=== PATIENT | male | born 1945 | race African-American/Black ===

== ENCOUNTER 2017-08-04 06:46 | Inpatient (IN) | payer MEDICARE ==
[2017-07-23 09:09] LABS: HEMATOCRIT 38.9 % (42.0-52.0); HEMOGLOBIN 13.3 gm/dL (14.0-18.0); MCHC 34.1 g/dL (28.0-37.0); MCV 85.1 fL (80.0-100.0); MPV 7.9 fl. (7.2-11.1); RBC 4.57 mil/uL (4.50-6.00); RDW-CV 14.4 % (10.5-14.5); WBC 5.1 thou/uL (4.0-11.0)
[2017-07-23 09:14] LABS: PROTIME 9.5 Seconds (9.20-11.50)
[2017-07-23 09:18] LABS: ALBUMIN 4.1 g/dL (3.4-5.0); CALCIUM 9.5 mg/dL (8.5-10.1); CREATININE 0.9 mg/dL (0.6-1.3); POTASSIUM 4.1 mmol/L (3.5-5.1); TOTAL BILIRUBIN 0.4 mg/dL (<0.1-1.0); TOTAL PROTEIN 7.8 g/dL (6.4-8.2)
[2017-07-23 10:00] LABS: URINE BLOOD NEGATIVE (Negative); URINE CLARITY CLEAR; URINE COLOR YELLOW; URINE GLUCOSE-RANDOM NEGATIVE (Negative); URINE KETONES NEGATIVE (Negative); URINE LEUKOCYTES-REFLEX NEGATIVE (Negative); URINE NITRITE-REFLEX NEGATIVE (Negative); URINE PROTEIN NEGATIVE (Negative); URINE SPECIFIC GRAVITY 1.015 (1.005-1.030); URINE UROBILINOGEN 0.2 E.U./dl (0.2-1.0)
[2017-07-23 10:01] LABS: URINE BILIRUBIN 2+ (Negative)
[2017-07-23 10:02] LABS: ICTOTEST (BILI CONFIRMATORY) Positive (Negative)
--- NOTE | 2017-07-23 16:39 | EKG ---
[place] [address] ELECTROCARDIOGRAM REPORT Name: DAMIAN THOMAS Room: PRE IN .R.#: [id number] Admission: Attend Phys: Abhishek Elliott Discharge: Date of : 47 Report #: [id number] THIS REPORT FOR: //name// [facility] Test Date: 2017-07-23 Test Time: 09:18:35 Pat Name: DAMIAN THOMAS Department: Room: Gender: M [employer]: : 1945 Requested By: Damian Hoyt Order Number: [id number] Reading MD: Richard Myers Measurements Intervals [place] Rate: 78 P: 54 NH: 127 QRS: 60 QRSD: 92 T: 44 QT: 365 QTc: 416 Interpretive Statements Sinus rhythm No previous ECG available for comparison Electronically Signed On 07-23-2017 16:39:01 CDT by Richard Myers [email or web address] <ELECTRONICALLY SIGNED> By: Richard Myers MD, [facility] 07/23/17 1639 0918 09 Richard Myers MD, FACC /EPI
[~2017-08-04] VITALS: Ht 182.9 cm; Wt 69.4 kg
[~2017-08-04 06:46] MED LIST: ETODOLAC 400 M400 M1 PO; NORCO 5-325 TA1 EACH PO
[2017-08-04 08:30] VITALS: BP 130/75
[2017-08-04 12:00] VITALS: BP 141/83
[2017-08-04 15:30] VITALS: BP 136/77
[2017-08-05] VITALS (7 sets, daily range): BP systolic 106–129; BP diastolic 62–75
[2017-08-05 05:18] LABS: HEMATOCRIT 27.2 % (42.0-52.0); HEMOGLOBIN 9.4 gm/dL (14.0-18.0)
[2017-08-06 04:17] VITALS: BP 117/72
[2017-08-06 04:17] LABS: HEMATOCRIT 26.5 % (42.0-52.0); HEMOGLOBIN 8.9 gm/dL (14.0-18.0)
[2017-08-06 08:30] VITALS: BP 108/72
[2017-08-06 09:00] VITALS: BP 108/72
[2017-08-06] MEDS ORDERED: COLACE 100 MG100 MG PO (11:35)
[2017-08-06] MEDS ORDERED: XARELTO10 MG PO (11:36)
[2017-08-06] MEDS ORDERED: METAMUCIL1 EAC1 PO (11:39)
[2017-08-06 11:52] VITALS: BP 113/75
[2017-08-06 12:40] VITALS: BP 113/75
--- NOTE | 2017-08-07 10:11 | S ---
[address] [address] SURGICAL PATH RPT PROCEDURE Name: DAMIAN THOMAS Room: [address] IN M.R.#: [id number] Admission: 08/04/17 Date of : 47 Discharge: 08/06/17 Report #: [id number] Path Case #: [id number] PATHOLOGY REPORT COLLECTION DATE: 08/04/2017 RECEIVED DATE: 08/04/2017 SUBMITTING PHYS: Dr. Damian Hoyt II OTHER PHYS: Dr. Filiberto Jordan SPECIMEN(S) RECEIVED: A.Bone right hip * * * * * * * * * * * * FINAL DIAGNOSIS: Bone right hip: - Benign femoral head with prominent osteonecrosis (avascular necrosis) and severe degenerative changes. (GAMALIEL:[facility]; 08/06/2017) PATHOLOGIST: Farhad Pacheco M.D. REPORT ELECTRONICALLY SIGNED BY: Farhad Pacheco M.D. DATE/TIME: 08/07/2017 10:10 * * * * * * * * * * * * GROSS PATHOLOGY: Received in formalin labeled "shakila Martino right hip," is a femoral head measuring 5.3 x 5.2 x 5.4 cm in greatest dimensions. The articular surface is smooth to granular and pale pink-youssef to light brown in appearance, displaying extensive eburnation/pitting that encompasses approximately 80% of the total articular surface. Sectioning the bone reveals pale yellow to hemorrhagic cut surfaces. Depositing Machine Operator tissue is submitted in cassette A1, following decalcification. (DAC; 08/05/2017) CLINICAL HISTORY: Right hip degenerative joint disease INITIAL CPT CODE(S): A; 61481, 48456 Professional services performed by [facility] at [facility], [facility] [address], [place] [address]. Technical services performed by [facility] at [address] [place] [address], [facility] [address] [address]. [place] [address] SURGICAL PATH RPT PROCEDURE Name: DAMIAN THOMAS Room: [address] IN M.R.#: [id number] Admission: 08/04/17 Date of : 47 Discharge: 08/06/17 Report #: [id number] Path Case #: [id number] [facility] [address] [address] PHONE: [phone] DIRECTOR: Eder Hodge M.D. * * * END OF REPORT * * *
--- NOTE | 2017-08-19 10:50 | OP ---
[facility] [address] [place] [address] OPERATIVE REPORT Name: DAMIAN THOMAS Room: [address] IN M.R.#: [id number] Admission: 08/04/17 Attend Phys: Abhishek Elliott Discharge: 08/06/17 Date of : 47 Report #: [id number] THIS REPORT FOR: //name// CC: Damian Santana DATE OF SERVICE: 08/04/2017 PREOPERATIVE DIAGNOSIS: Right hip osteoarthritis. POSTOPERATIVE DIAGNOSIS: Right hip osteoarthritis. PROCEDURE: Right total hip arthroplasty. ANESTHESIA: General endotracheal. ESTIMATED BLOOD LOSS: 300. ANTIBIOTICS: Ancef preoperatively. DRAINS: Medium Hemovac. COMPLICATIONS: None. CONDITION: The patient is stable to recovery room. SURGEON: Damian Hoyt DO BEATER HEAD: ALEX Phliip IMPLANTS: Listed in the operative record and progress note. BRIEF HISTORY: The patient seen in the preoperative area. Preoperative H and P was performed. Site was marked, questions were answered. Risks and benefits were discussed with the patient in detail about surgery. The patient wished to proceed and assumed all risks. DESCRIPTION OF PROCEDURE: The patient was brought to the operative suite and placed supine on the operating table and given appropriate anesthesia. The patient's operative hip was placed in the [place] table leg tucker and sterilely prepped and draped in the supine position. Surgery began by longitudinal incision over the anterior portion of the hip. This was carried down through subcutaneous tissues. A small madhavi was made in the tensor fascia. It was then split in line with its fibers and retracted laterally. Careful hemostasis was maintained. An H capsulotomy was then performed, maintained with electrocautery [address] [address] OPERATIVE REPORT Name: DAMIAN THOMAS Room: [address] IN .R.#: [id number] Admission: 08/04/17 Attend Phys: Abhishek Elliott Discharge: 08/06/17 Date of : 47 Report #: [id number] and Aquamantys with hemostasis. The head, neck cutting alignment guide was then checked with fluoroscopic guidance. Appropriate cut was made of the head and neck and this was removed. Attention was turned to the acetabulum. Excess labrum was removed. It was then reamed in sequential fashion of the appropriate size. This was shown to have excellent bleeding bone and excellent position on fluoroscopic guidance. The acetabular cup was then malleted in position and secured with cancellous screws. The metal liner was then applied. The patient's leg was then rotated on the [place] table to expose the femur. It was then broached in sequential fashion up to the appropriate size. Appropriate neck was then trialed with appropriate head length and shown to have all have excellent fit and fill with excellent stability of the hip throughout all range of motion. These trials were removed. The final stem was then malleted in position and the final head and neck was malleted in position. It was reduced in appropriate fashion, checked with the C-arm for appropriate length and showed excellent length of the leg throughout all exams without evidence of dislocation upon range of motion and shuck testing. The wound was then copiously irrigated. Hemostasis was once again maintained with electrocautery and Aquamantys. Pain cocktail was injected. PRP gel was sprayed throughout the internal aspect of the hip. The drain was activated. The H capsulotomy was then closed with #1 Vicryl in [id number]-[id number] fashion. Tensor fascia was then closed with #1 Vicryl in running fashion. Skin was closed with 2-0 Vicryl and running 3-0 Monocryl. Dermabond dressing applied. The patient transported to recovery room in stable condition. Counts were correct throughout the procedure. <ELECTRONICALLY SIGNED> By: Damian Hyot II, DO 08/19/17 1050 1717 1758Damian Hoyt II, DO /nt
== END 2017-08-06 12:40 | disposition home health service (06) | DRG 470 ==
LOC: M.PRE 06:46 → M.ORTHSURG 07:26 → M.TBA 07:26 → M.PRE 08:00 → M.ORTHSURG 11:18
PROVIDERS: Orthopaedic Surgery; ADMIT Internal Medicine
PROC: 0SR90JA Replacement of Right Hip Joint with Synthetic Substitute, Uncemented, Open Approach (ICD-10-PCS; principal; 2017-08-04)
DX: M16.11 Unilateral primary osteoarthritis, right hip (principal); Z88.0 Allergy status to penicillin; F17.210 Nicotine dependence, cigarettes, uncomplicated; Z79.899 Other long term (current) drug therapy